=== PATIENT | female | born 1995 | race Two or more races ===

== ENCOUNTER 2024-07-27 12:18 | Emergency (ER) | payer OTHER ==
[~2024-07-27] VITALS: Ht 157.5 cm; Wt 83.9 kg
[2024-07-27 12:36] VITALS: BP 116/75; O2SAT 99
[2024-07-27] MEDS ORDERED: ALBUTEROL0.63 MG/3 IH (12:36)
[2024-07-27] MEDS ORDERED: CRYSELLE-28 TA1 EACH PO (12:36)
[2024-07-27 13:19] LABS: HEMATOCRIT 38.6 % (36.0-45.00); MEAN CELL VOLUME 80.6 fL (80.00-100.00); MEAN CORPUSCULAR HGB CONC 33.5 g/dl (32.0-36.0); PLATELET COUNT 311 K/uL (150-450); RED BLOOD COUNT 4.79 M/uL (4.00-6.00); RED CELL DISTRIBUTION WIDTH 13.8 % (11.5-14.5)
[2024-07-27 16:14] LABS: PH,URINE 6.5 (5.0-8.0); URINE APPEARANCE Clear; URINE BILIRRUBIN Negative (NEGATIVE); URINE BLOOD Moderate; URINE COLOR Yellow; URINE GLUCOSE Negative (NEGATIVE); URINE KETONE Negative (NEGATIVE); URINE LEUKOCYTE Moderate; URINE NITRATE Negative; URINE PROTEIN Negative (NEGATIVE); URINE UROBILINOGEN 0.2 E.U./dl
[2024-07-27 16:17] LABS: URINE EPITHELIAL CELLS 10.2 uL (0.0-38.8); URINE RBC 13.6 uL (0.0-20.8); URINE WBC 250.5 uL (0.0-23.2)
[2024-07-27 16:18] LABS: URINE BACTERIA > 9821.5 uL (0.0-1933)
== END 2024-07-27 18:42 | disposition home or self-care (01) ==
LOC: ER 12:20
PROVIDERS: Emergency Medicine
DX: N39.0 Urinary tract infection, site not specified (principal); N83.201 Unspecified ovarian cyst, right side; Z87.09 Personal history of other diseases of the respiratory system